=== PATIENT | male | born 1965 | race Caucasian/White ===

== ENCOUNTER 2018-03-24 14:27 | Observation (INO) ==
[2018-03-24] MEDS ORDERED: Acetaminophen 325 MG TABLET PO ONE (14:37)
[2018-03-24] MEDS ORDERED: Ondansetron ODT 4 MG TAB.RAPDIS SL ONE (14:37)
[2018-03-24 15:02] LABS: Hematocrit 44.2 % (37.5-50.1); Hemoglobin 14.6 g/dL (12.9-16.9); Mean Corpuscular Hemoglobin 31.7 pg (28.0-33.3); Mean Corpuscular Volume 95.9 fL (83.0-100.0); Mean Platelet Volume 8.9 fL (9.4-12.4); Platelet Count 266 K/mcL (140-400); Red Blood Count 4.61 M/mcL (4.19-5.50); Red Cell Distribution Width 13.7 % (11.5-14.5)
[2018-03-24 15:24] LABS: Troponin I < 0.03 ng/mL (< 0.04)
[2018-03-24 15:25] LABS: BUN/Creatinine Ratio 18 (6-26); Blood Urea Nitrogen 17 mg/dL (6-20); Calcium 9.3 mg/dL (8.6-10.3); Carbon Dioxide 27 mEq/L (23-29); Chloride 105 mEq/L (98-107); Glucose 95 mg/dL (70-105); Osmolality,Calculated 289 (280-300); Potassium 3.9 mEq/L (3.5-5.1); Sodium 139 mEq/L (136-145); eGFR For Non-African Americans > 60 (> 60)
--- NOTE | 2018-03-24 15:32 | Emergency Department Note ---
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 He states he was walking when the chest pain started and it felt like a sternal pressure radiating into his back and jaw. He got sweaty during this and felt nauseous but did not vomit. He has never had chest pain like this before. He has family history of cardiac problems including a heart attack in his father. He received 324mg aspirin and SL nitro which improved his chest pain from a 8/10 to a 5/10. He now also complains of a headache. Severity scale (1-10): 3 - Related Data Allergies Allergy/AdvReac Type Severity Reaction Status Date / Time Erythromycin Base Allergy Swelling Verified 10/31/17 01:42 of Lip/Tongue/Throat All systems ED: reviewed and negative except as stated. Review of Systems: As Per HPI Constitutional: Denies: fever, chills, weakness Cardiovascular: Reports: chest pain. Denies: palpitations, dyspnea on exertion, syncope Respiratory: Denies: cough, dyspnea, wheezes Gastrointestinal: Reports: nausea. Denies: abdominal pain, vomiting, diarrhea Genitourinary: Denies: dysuria Musculoskeletal: Reports: back pain, neck pain Integumentary: Denies: rash Neurological: Denies: headache Psychiatric: Denies: anxiety, depression Endocrine: Denies: fatigue Chest Pain PMH - Past Medical History Medical history: Reports: hypertension Surgical history: Reports: orthopedic, other (lumbar spine discectomy several years ago by Dr. Levin) Psychiatric history: Reports: anxiety, depression - Social History Smoking Status: Current every day smoker Alcohol use: Reports: occasionally Drug use: Reports: none Physical Exam - General Limitations: no limitations General appearance: alert, in no apparent distress - Head Head exam: atraumatic, normocephalic - Eye Eye exam: Present: normal appearance, PERRL, EOMI - ENT ENT exam: normal exam - Neck Neck exam: Present: normal inspection - Chest Chest inspection: Present: normal inspection, symmetric chest wall rise. Absent: tenderness, rash - Respiratory Respiratory exam: Present: normal lung sounds bilaterally - Cardiovascular Cardiovascular exam: Present: regular rate, normal rhythm - Abdominal Exam Abdominal exam: Present: soft, Non-Tender. Absent: distention, guarding, rebound, rigidity - Extremities Exam Extremities exam: Present: normal inspection. Absent: tenderness, pedal edema - Neurological Exam Neurological exam: Present: alert, oriented X3, CN II-XII intact - Psychiatric Psychiatric exam: Present: normal affect, normal mood - Skin Skin exam: Present: warm, dry, intact Course Vital Signs Temperature 98.3 F 03/24/18 14:37 Pulse Rate 85 03/24/18 14:37 Respiratory Rate 18 03/24/18 14:37 Blood Pressure 155/100 03/24/18 14:37 O2 Sat by Pulse Oximetry 98 03/24/18 14:37 Temperature 98.3 F 03/24/18 14:37 Pulse Rate 80 03/24/18 15:38 Respiratory Rate 19 03/24/18 15:38 Blood Pressure 133/93 03/24/18 15:38 O2 Sat by Pulse Oximetry 97 03/24/18 15:38 Oxygen Delivery Oxygen Delivery Room Air Chest Pain - MDM Narrative Medical decision making narrative: Pt with multiple cardiac risk factors presents with chest pain concerning for ACS. We will obtain CBC, BMP, troponin, EKG and CXR. 1530 - Initial lab work is unremarkable. EKG does not show evidence of STEMI. Pt has been admitted for further cardiac workup. Accepting physician is Dr. Alejandro. - Medical Records Medical records reviewed: Yes I reviewed the patient's medical records. - Lab Data Lab results reviewed: Yes I reviewed the patient's lab results. Result diagrams: 03/24/18 14:34 03/24/18 14:34 Lab Results 03/24/18 03/24/18 Range/Units 14:34 14:34 WBC 10.4 (4.3-11.1) K/mcL RBC 4.61 (4.19-5.50) M/mcL Hgb 14.6 (12.9-16.9) g/dL Hct 44.2 (37.5-50.1) % MCV 95.9 (83.0-100.0) fL MCH 31.7 (28.0-33.3) pg MCHC 33.0 (31.6-35.5) g/dL RDW 13.7 (11.5-14.5) % Plt Count 266 (140-400) K/mcL MPV 8.9 L (9.4-12.4) fL Sodium 139 (136-145) mEq/L Potassium 3.9 (3.5-5.1) mEq/L Chloride 105 (98-107) mEq/L Carbon Dioxide 27 (23-29) mEq/L BUN 17 (6-20) mg/dL Creatinine 0.93 (0.70-1.30) mg/dL Est GFR ( Amer) > 60 (> 60) Est GFR (Non-Af Amer) > 60 (> 60) BUN/Creatinine Ratio 18 (6-26) Glucose 95 (70-105) mg/dL Calculated Osmolality 289 (280-300) Calcium 9.3 (8.6-10.3) mg/dL Troponin I < 0.03 (< 0.04) ng/mL - Radiology Data Radiology results reviewed: Yes I reviewed the patient's radiology results. - EKG Data EKG attestation: Yes I reviewed and interpreted this EKG. EKG results narrative: EKG obtained at 1436 on 03/24/2018 HR 77 bpm, pr interval 147, QRS duration 106, QT 390, QTc 442 Sinus rhythm without any ST segment elevations or depressions. No signs of ischemia or arrhythmia. Unchanged from previous EKG. Heart Score - Score History: Moderately Suspicious EKG: Normal Age: 45-65 Risk Factors: Equal/Greater than 3 risk factor or history of atherosclerotic disease Troponin: Less than normal limit HEART Score Total: 4 Attestation Statement - Attestation Attestation: DR Lancaster note: Pt seen in conjunction w/ resident Dr Daylin Hernandez; Please see his charting for complete documentation; I spent face to face time w/ the pt and agree w/ the pt's treatment and disposition; ekg , troponin, and cxr, labs reviewed; patient has no chest pain at this time but was ambulating earlier and had parasternal chest pain or diaphoresis radiation to the jaw. Denies such symptoms in the past. Pain free After aspirin and nitroglycerin. EKG initial testing unremarkable. Will be admitted for all ACS. Admitted pain-free and in stable condition.
[2018-03-24] MEDS ORDERED: Naloxone 0.4 MG/ML INJ IVP PRN (18:58)
[2018-03-24] MEDS ORDERED: Acetaminophen 325 MG TABLET PO PRN (18:58)
[2018-03-24] MEDS ORDERED: *HR* HYDROcodone/Acet 5/325 mg TABLET PO PRN (18:58)
[2018-03-24] MEDS ORDERED: Nitroglycerin 0.4 MG TAB.SUBL SL PRN (19:01)
--- NOTE | 2018-03-24 19:32 | Internal Med History&Physical ---
Date of Encounter: 03/24/18 Time of Encounter: 19:12 Internal Medicine - H&P: HPI Chief complaint: cp Admitted From: Emergency Dept Plans for Post Hospital Care: Home History of present illness: Mr. Mata is a 52 year old male past history of hypertension lumbar spine discectomy current every day smoker PTSD-patient states he was walking down the hallway when he experienced sudden onset of midsternal sharp chest pain that radiated to his back as well as to his left jaw. He became diaphoretic and nauseous however he did not vomit. He did rest and the pain continued and was intermittent. By the time he arrived at [facility] emergency department pain had eased greatly described as a heaviness. According to ER records he received aspirin as well as sublingual nitroglycerin which did ease his pain from 09/28-06/28. He did experience a headache. He denies any previous cardiac workup-he does have a family history of cardiac disease. Initial troponin was negative EKG with no ST-T wave abnormality. He has been admitted for further work up and evaluation. Currently patient denies any chest pain or shortness of breath he does complain of a headache. I did discuss treating plan with the patient verbalized understanding Past Med Surg Social Fam HX - Past Medical History Medical history: hypertension Psychiatric history: anxiety, depression - Past Surgical History Surgical History: orthopedic, other (lumbar spine discectomy several years ago by Dr. Levin) Additional surgical history: lower back surgery, rotator cuff surgery, 2 left knee surgeries - Social History Smoking Status: Current every day smoker Smokeless Tobacco Status: No Alcohol use: occasionally Drug use: none - Family History Father Living Status: Still Living Hx Family Cardiac Disorders: Yes Mother Living Status: Still Living Hx Family Cardiac Disorders: Yes Hx Family Neurologic Disorders: Yes Internal Medicine - H&P: Meds Lisinopril [Zestril] 20 mg PO DAILY 03/06/15 [History] Meloxicam [Mobic] 7.5 mg PO DAILY PRN #30 tablet 03/06/15 [Rx] Hydrocodone/Acetaminophen [Hydrocodon-Acetaminophen 5-325] 1 each PO TID #10 tablet 02/15/16 [Rx] Tizanidine HCl 4 mg PO TID #15 tablet 02/15/16 [Rx] methylPREDNISolone [Medrol] 4 mg PO DAILY #21 tablet 02/15/16 [Rx] Tramadol HCl [Ultram] 50 mg PO TID PRN #12 tab 07/09/16 [Rx] HYDROcodone/Acet 5/325 mg [[place] 5-325 mg] 1 tab PO Q8HR PRN #12 tab 09/14/16 [Rx] Tramadol HCl [Ultram] 50 mg PO QID PRN #20 tab 10/31/16 [Rx] diazePAM [Valium] 5 mg PO TID #12 tablet 10/31/16 [Rx] predniSONE [PredniSONE] 60 mg PO DAILY #15 tablet 10/31/16 [Rx] cephALEXin [Keflex] 500 mg PO QID #28 capsule 04/09/17 [Rx] Allergy/AdvReac Type Severity Reaction Status Date / Time Erythromycin Base Allergy Swelling Verified 10/31/17 01:42 of Lip/Tongue/Throat All Systems PM: A 10-system review of systems was performed and is negative for pertinent findings except as documented above in the HPI. - Constitutional Constitutional: no chills, no fever(s), no night sweats - EENT Eyes: no change in vision, no discharge, no pain, no photophobia Ears: no ear discharge, no ear pain, no tinnitus Nose, mouth and throat: no dysphagia, no nasal discharge, no neck pain, no sore throat - Cardiovascular Cardiovascular ROS IM: no chest pain, no diaphoresis, no dyspnea, no lightheadedness, no palpitations, no syncope - Respiratory Respiratory: no cough, no dyspnea, no wheezing, no excessive phlegm production - Gastrointestinal Gastrointestinal: no abdominal pain, no diarrhea, no hematemesis, no hematochezia, no melena, no nausea, no vomiting - Musculoskeletal Musculoskeletal ROS IM: no numbness, no tingling - Integumentary Integumentary IM: no rash, no unusual bruising - Neurological Neurological ROS: no confusion, no convulsions, no focal weakness, no numbness, no tingling, no tremor(s) - Hematologic/Lymphatic Hematologic/Lymphatic: no easy bruising - Constitutional Vitals: Temp Pulse Resp BP Pulse Ox 98.3 F 80 19 133/93 97 03/24/18 14:37 03/24/18 15:38 03/24/18 15:38 03/24/18 15:38 03/24/18 15:38 General appearance: Present: A&O X 3 Exam: . - Head Head exam: Present: atraumatic, normocephalic - Eye Eye exam: Present: PERRL, conjuntiva pink, sclera anicteric Pupils: Present: PERRL - Neck Neck exam general surgery: Present: supple, trachea midline. Absent: lymphadenopathy - Respiratory Respiratory exam: Present: CTAB. Absent: accessory muscle use, rales, rhonchi, wheezes - Cardiovascular Cardiovascular exam: Present: RRR, +S1, +S2. Absent: diastolic murmur, gallop, rubs, systolic murmur - GI/Abdominal GI/Abdominal exam: Present: normal bowel sounds, soft, no peritoneal signs. Absent: distended, tenderness - Extremities Exam Extremities exam: Present: warm, radial pulses palpable and symmetrical. Absent: calf tenderness, cyanotic, pedal edema - Neurological Exam Neurological exam: Present: CN II-XII intact, oriented X3, no focal deficits. Absent: pronater drift, facial droop, speech deficit - Skin Skin exam: Present: dry, intact Internal Med - H&P Results - Labs CBC & Chem 7: 03/24/18 14:34 03/24/18 14:34 Labs: Short CBC 03/24/18 Range/Units 14:34 WBC 10.4 (4.3-11.1) K/mcL Hgb 14.6 (12.9-16.9) g/dL Hct 44.2 (37.5-50.1) % Plt Count 266 (140-400) K/mcL BMP 03/24/18 14:34 Sodium 139 Potassium 3.9 Chloride 105 Carbon Dioxide 27 BUN 17 Creatinine 0.93 Glucose 95 Calcium 9.3 Cardiac Enzymes 03/24/18 Range/Units 14:34 Troponin I < 0.03 (< 0.04) ng/mL - EKG Data EKG shows normal: sinus rhythm - Impressions ITS Impressions Chest X-Ray 03/24/18 14:34 IMPRESSION: No acute cardiopulmonary disease. D/ / Bonita Cooper MD / Bonita Cooper MD Interpreting Provider: Bonita Cooper MD - Diagnostic Studies Other Images Additional comments: Chest X-Ray 03/24/18 14:34 IMPRESSION: No acute cardiopulmonary disease. D/ / Bonita Cooper MD / Bonita Cooper MD Interpreting Provider: Bonita Cooper MD - Assessment and plan (1) HTN (hypertension) Current Visit: No Status: Chronic Assessment and plan: Continue with lisinopril once verified Qualifiers: Hypertension type: essential hypertension Qualified Code(s): I10 - Essential (primary) hypertension (2) Chest pain Current Visit: Yes Status: Acute Assessment and plan: Patient experienced sudden onset of midsternal chest pain is radiating to back and left jaw with associated symptoms of nausea and diaphoresis shortness of breath. Eased with nitroglycerin. Does have a family history of cardiac diseas e. We will continue to trend troponins first set was negative Continuous cardiac monitoring Obtain cardiac echo Nothing by mouth after midnight Cardiac stress test in the a.m. Aspirin and statin Nitroglycerin as needed for chest pain Consult cardiology as needed Check lipid profile Check TSH Qualifiers: Chest pain type: unspecified Qualified Code(s): R07.9 - Chest pain, unspecified (3) Tobacco abuse Current Visit: Yes Status: Acute Assessment and plan: 1 encourage smoking cessation (4) Chronic back pain Current Visit: No Status: Chronic Assessment and plan: History of chronic back pain we will continue with home medications have patient follow-up with PCP as outpatient Qualifiers: Back pain location: low back pain Back pain laterality: midline Sciatica presence: with sciatica Sciatica laterality: sciatica of right side Qualified Code(s): M54.41 - Lumbago with sciatica, right side; G89.29 - Other chronic pain - Time Spent With Patient Total time spent is greater than 50% in coordination of care (as documented) at patient's floor/unit and/or counseling patient:
[2018-03-25 03:37] LABS: Basophils # 0.1 K/mcL (0.0-0.2); Basophils % 0.7 %; Eosinophils # 0.3 K/mcL (0.0-0.6); Eosinophils % 3.7 %; Hematocrit 44.2 % (37.5-50.1); Hemoglobin 14.4 g/dL (12.9-16.9); Immature Granulocytes % 0.5 % (0-4); Lymphocytes % 34.7 %; Mean Corpuscular HGB Conc 32.6 g/dL (31.6-35.5); Mean Corpuscular Hemoglobin 31.4 pg (28.0-33.3); Mean Corpuscular Volume 96.3 fL (83.0-100.0); Monocytes # 0.6 K/mcL (0.0-1.3); Monocytes % 7.3 %; Neutrophils # 4.6 K/mcL (1.6-8.9); Platelet Count 243 K/mcL (140-400); Red Blood Count 4.59 M/mcL (4.19-5.50); Red Cell Distribution Width 13.9 % (11.5-14.5); Segmented Neutrophils % 53.1 %
[2018-03-25 03:51] VITALS: BP 112/69
[2018-03-25 04:00] LABS: BUN/Creatinine Ratio 17 (6-26); Blood Urea Nitrogen 16 mg/dL (6-20); Calcium 8.7 mg/dL (8.6-10.3); Carbon Dioxide 28 mEq/L (23-29); Chloride 109 mEq/L (98-107); Chol/HDL Ratio 7.4 (0-4.9); Cholesterol 228 mg/dL (< 200); Glucose 102 mg/dL (70-105); HDL Cholesterol 31 mg/dL (40-59); LDL Cholesterol,Calculated 147 mg/dL (0-99); Magnesium 2.4 mg/dL (1.6-2.6); Osmolality,Calculated 293 (280-300); Potassium 4.2 mEq/L (3.5-5.1); Sodium 141 mEq/L (136-145); Triglycerides 249 mg/dL (< 150); eGFR For Non-African Americans > 60 (> 60)
[2018-03-25] MEDS ORDERED: Aspirin 81 MG TAB.CHEW PO SCH (09:00)
--- NOTE | 2018-03-25 10:41 | Discharge Summary ---
- NOTES TO OUTPATIENT PROVIDER Notes to Outpatient Provider: admitted with chest pain troponins were negative 3 underwent stress test which was negative for any ischemia or infarct-good exercise capacity EF of 60- 65% on echocardiogram Orders not resulted at time of discharge: Pending orders 03/24/18 19:28 NM randall perf SPECT multi [NM] Routine 03/25/18 06:00 ECG 12 lead ECG [ECG] AM 0600 Date of Encounter: 03/25/18 Time of Encounter: 10:37 - Discharge Diagnosis (1) HTN (hypertension) Priority: Secondary Status: Chronic Qualifiers: Hypertension type: essential hypertension Qualified Code(s): I10 - Essential (primary) hypertension (2) Chest pain Priority: Primary Status: Acute Qualifiers: Chest pain type: unspecified Qualified Code(s): R07.9 - Chest pain, unspecified (3) Tobacco abuse Priority: Secondary Status: Acute (4) Chronic back pain Priority: Secondary Status: Chronic Qualifiers: Back pain location: low back pain Back pain laterality: midline Sciatica presence: with sciatica Sciatica laterality: sciatica of right side Qualified Code(s): M54.41 - Lumbago with sciatica, right side; G89.29 - Other chronic pain Hospital course: Mr. Mata is a 52 year old male past medical history of hypertension lumbar spine discectomy current every day smoker, PTSD presented to [facility] ED with sudden onset of midsternal sharp chest pain radiating to his back as well as to his jaw. Associated symptoms of diaphoresis and nausea shortness of breath. Troponins were negative [address]-T wave abnormalities. Pain was relieved with aspirin nitroglycerin. He did undergo a cardiac stress test which was negative for any ischemia or infarctno ischemia on exercise EKG good exercise capacity-no arrhythmias on telemetry overnight. Currently he is chest pain-free and has been ambulating in the hallways without any complaints. He has been chest pain free during admission advised patient to follow-up with primary care provider since this provider knows him best and can adjust medications accordingly. Patient did have an elevation in blood pressure on presentation as suspect this may have been contributing to chest pain advised patient to monitor blood pressure. encourage lifestyle changes including not smoking low-fat low-salt diet patient was given a prescription for baby aspirin as well as statin-Lipitor. Patient verbalized understanding currently hemodynamically stable and ready for discharge. - Time Spent with Patient Total time spent providing and/or coordinating discharge services: - Discharge Medications Prescriptions: Aspirin 81 mg PO DAILY #30 tab.chew Atorvastatin [Lipitor] 40 mg PO HS #30 tablet Home Medications: Aspirin 81 mg PO DAILY #30 tab.chew 03/25/18 [Rx] Atorvastatin [Lipitor] 40 mg PO HS #30 tablet 03/25/18 [Rx] Allergies/Adverse Reactions: Allergy/AdvReac Type Severity Reaction Status Date / Time Erythromycin Base Allergy Swelling Verified 10/31/17 01:42 of Lip/Tongue/Throat shellfish derived Allergy Swelling Verified 03/24/18 22:07 of Lip/Tongue/Throat Date of admission: 03/24/18 15:49 Primary care physician: Zabrina Truong Discharging clinician: Jemma Moon Anticipated date of discharge: 03/25/18 - Constitutional Vitals: Temp Pulse Resp BP Pulse Ox 97.6 F 63 17 112/69 98 03/25/18 03:49 03/25/18 03:49 03/25/18 03:49 03/25/18 03:49 03/25/18 03:49 General appearance: Present: A&O X 3 Exam: . - Head Head exam: Present: atraumatic, normocephalic - Eye Eye exam: Present: PERRL, conjuntiva pink, sclera anicteric Pupils: Present: PERRL - Neck Neck exam general surgery: Present: supple, trachea midline. Absent: lymphadenopathy - Respiratory Respiratory exam: Present: CTAB. Absent: accessory muscle use, rales, rhonchi, wheezes - Cardiovascular Cardiovascular exam: Present: RRR, +S1, +S2. Absent: diastolic murmur, gallop, rubs, systolic murmur - GI/Abdominal GI/Abdominal exam: Present: normal bowel sounds, soft, no peritoneal signs. Absent: distended, tenderness - Extremities Exam Extremities exam: Present: warm, radial pulses palpable and symmetrical. Absent: calf tenderness, cyanotic, pedal edema - Neurological Exam Neurological exam: Present: CN II-XII intact, oriented X3, no focal deficits. Absent: pronater drift, facial droop, speech deficit - Skin Skin exam: Present: dry, intact - Patient Status Disposition: Home, Self-Care Condition: Fair Functional capacity at discharge: independent ambulation Overall status at discharge: patient is back to baseline - Discharge Instructions Instructions: Chest Pain (DC), Chronic Hypertension (DC) Follow Up With: Zabrina Truong MD [Primary Care Provider] - 03/29/18 9:45 am - Diet and Activity Activity: increase activity as tolerated Diet: advance to your usual diet
--- NOTE | 2018-03-27 20:31 | Electrocardiograph Report ---
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
== END 2018-03-25 11:10 | disposition home or self-care (01) ==
LOC: 3BNU 14:27 → EMEROOARM 14:27 → 3BNU 18:30
PROVIDERS: ADMIT Student in an Organized Health Care Education/Training Program; ATTEND Student in an Organized Health Care Education/Training Program

== ENCOUNTER 2021-08-17 09:45 | Observation (INO) ==
[2021-08-17] MEDS ORDERED: Morphine Sulfate 2 MG/ML SYRINGE IVP ONE ×3 (12:35→16:14)
[2021-08-17 12:43] LABS: Bilirubin,Urine Negative (Negative); Blood,Urine Negative (Negative); Clarity,Urine Clear (Clear); Color,Urine Light-Yellow (Yellow); Glucose,Urine (UA) Normal (Normal); Ketones,Urine Negative (Negative); Leukocyte Esterase,Urine Negative (Negative); Nitrite,Urine Negative (Negative); PH,Urine 6.5 pH Units (5.0-8.0); Protein,Urine Negative (Neg-Trace); Urobilinogen,Urine Normal (Normal)
[2021-08-17] MEDS ORDERED: Ondansetron 4 MG/2 ML VIAL IVP PRN ×3 (12:47→17:45)
[2021-08-17 13:18] LABS: Amphetamine Screen,Urine Negative ng/mL (Cutoff=1000); Barbiturate Screen,Urine Negative ng/mL (Cutoff=200); Benzodiazepines Screen,Urine Positive ng/mL (Cutoff=200); Cannabinoid Screen,Urine Positive ng/mL (Cutoff = 50); Cocaine Screen,Urine Negative ng/mL (Cutoff= 300); Opiate Screen,Urine Positive ng/mL (Cutoff=300); Phencyclidine Screen,Urine Negative ng/mL (Cutoff=25)
[2021-08-17 13:21] LABS: Basophils % 0.2 %; Hematocrit 45.6 % (37.5-50.1); Hemoglobin 15.3 g/dL (12.9-16.9); Immature Granulocytes % 0.7 % (0-4); Lymphocytes # 1.9 K/mcL (0.6-4.6); Lymphocytes % 14.8 %; Mean Corpuscular HGB Conc 33.6 g/dL (31.6-35.5); Mean Corpuscular Hemoglobin 32.5 pg (28.0-33.3); Mean Corpuscular Volume 96.8 fL (83.0-100.0); Mean Platelet Volume 8.7 fL (9.4-12.4); Monocytes # 0.4 K/mcL (0.0-1.3); Neutrophils # 10.6 K/mcL (1.6-8.9); Platelet Count 316 K/mcL (140-400); Red Blood Count 4.71 M/mcL (4.19-5.50); Red Cell Distribution Width 14.2 % (11.5-14.5); Segmented Neutrophils % 81.3 %
[2021-08-17 13:54] LABS: Acetaminophen < 10 mcg/mL (10-20); BUN/Creatinine Ratio 16 (6-26); Blood Urea Nitrogen 17 mg/dL (6-20); Calcium 9.5 mg/dL (8.6-10.3); Carbon Dioxide 27 mEq/L (23-29); Chloride 106 mEq/L (98-107); Chol/HDL Ratio 6.1 (0-4.9); Cholesterol 263 mg/dL (< 200); Ethanol < 10 mg/dL (Less than 10); Glucose 118 mg/dL (70-105); HDL Cholesterol 43 mg/dL (40-59); LDL Cholesterol,Calculated 190 mg/dL (< 100); Osmolality,Calculated 297 (280-300); Potassium 4.3 mEq/L (3.5-5.1); Salicylate < 2.5 mg/dL (15.0-30.0); Sodium 142 mEq/L (136-145); Triglycerides 151 mg/dL (< 150); eGFR For African Americans > 60 (> 60); eGFR For Non-African Americans > 60 (> 60)
[2021-08-17 14:02] LABS: Troponin I < 0.03 ng/mL (< 0.04)
[2021-08-17 15:34] LABS: Estimated Average Glucose 126 mg/dl
[2021-08-17] MEDS ORDERED: Ketorolac 30 MG/ML VIAL IVP ONE (16:14)
[2021-08-17] MEDS ORDERED: *HR* OxyCODONE Immed Rel 5 MG TABLET PO PRN (17:45)
[2021-08-17] MEDS ORDERED: Acetaminophen 325 MG TABLET PO PRN (17:45)
[2021-08-17] MEDS ORDERED: Naloxone 0.4 MG/ML INJ IVP PRN (17:45)
[2021-08-17] MEDS ORDERED: methocarbamoL 500 MG TABLET PO PRN (17:57)
[2021-08-17] MEDS ORDERED: diazePAM 5 MG TABLET PO PRN (17:57)
[2021-08-17] MEDS ORDERED: *HR* FentaNYL PATCH 75 MCG PATCH TD SCH (18:30)
[2021-08-17 19:04] LABS: Magnesium 2.3 mg/dL (1.6-2.6)
[2021-08-17] MEDS: polyethylene glycoL 3350 17 GM POWD.PACK PO SCH (19:16)
[2021-08-17] MEDS: *HR* Heparin 5,000 UNIT/ML VIAL SQ SCH (19:34)
[2021-08-17] MEDS: Ketorolac 30 MG/ML VIAL IM SCH ×2 (20:09→23:23)
[2021-08-17] MEDS: Sennosides/Docusate Sodium TABLET PO SCH (21:21)
[2021-08-18 04:28] LABS: Basophils % 0.1 %; Hematocrit 40.9 % (37.5-50.1); Immature Granulocytes % 0.7 % (0-4); Lymphocytes % 16.3 %; Mean Corpuscular HGB Conc 32.8 g/dL (31.6-35.5); Mean Corpuscular Hemoglobin 32.1 pg (28.0-33.3); Mean Corpuscular Volume 97.8 fL (83.0-100.0); Mean Platelet Volume 9.1 fL (9.4-12.4); Monocytes # 0.4 K/mcL (0.0-1.3); Monocytes % 3.5 %; Neutrophils # 9.6 K/mcL (1.6-8.9); Platelet Count 277 K/mcL (140-400); Red Blood Count 4.18 M/mcL (4.19-5.50); Red Cell Distribution Width 14.1 % (11.5-14.5); Segmented Neutrophils % 79.4 %; White Blood Count 12.1 K/mcL (4.3-11.1)
[2021-08-18 04:30] LABS: Hemoglobin 13.4 g/dL (12.9-16.9)
[2021-08-18 04:47] LABS: Alanine Aminotransferase 18 Units/L (7-52); Albumin 3.8 g/dL (3.5-5.7); Albumin/Globulin Ratio 1.7 (1.1-2.2); Alkaline Phosphatase 39 Units/L (34-104); Aspartate Amino Transferase 12 Units/L (13-39); BUN/Creatinine Ratio 21 (6-26); Bilirubin,Total 0.3 mg/dL (0.3-1.0); Blood Urea Nitrogen 20 mg/dL (6-20); Calcium 9.2 mg/dL (8.6-10.3); Carbon Dioxide 26 mEq/L (23-29); Chloride 106 mEq/L (98-107); Globulin 2.2 g/dL (2.4-3.5); Glucose 131 mg/dL (70-105); Osmolality,Calculated 296 (280-300); Potassium 4.1 mEq/L (3.5-5.1); Sodium 141 mEq/L (136-145); eGFR For African Americans > 60 (> 60); eGFR For Non-African Americans > 60 (> 60)
[2021-08-18] MEDS: Ketorolac 30 MG/ML VIAL IM SCH ×2 (06:02→11:52)
[2021-08-18] MEDS: *HR* Heparin 5,000 UNIT/ML VIAL SQ SCH (06:03)
[2021-08-18] MEDS: Sennosides/Docusate Sodium TABLET PO SCH (08:24)
[2021-08-18] MEDS: polyethylene glycoL 3350 17 GM POWD.PACK PO SCH (08:24)
[2021-08-18] MEDS ORDERED: Nicotine 21 MG PATCH.TD24 TD SCH (09:00)
[2021-08-18 11:06] VITALS: BP 153/90; PULSE 63; TEMP 97.7; O2SAT 95
== END 2021-08-18 13:17 | disposition home or self-care (01) ==
LOC: EMEROOARM 09:45 → 3BNU 09:45 → SUATTDRO 19:34 → 3BNU 20:35
PROVIDERS: ADMIT General Practice; ATTEND Nurse Practitioner